=== PATIENT | male | born 1950 | race Caucasian/White ===

== ENCOUNTER 2017-08-08 16:49 | Inpatient (IN) ==
[2017-08-08] MEDS ORDERED: ALBUTEROL/IPRATROPIUM 3 ML NEB RESP TX STA (17:29)
[2017-08-08 17:38] LABS: Basophils % 0.4 % (0.0-0.8); Hematocrit 44.4 VOL% (42.0-52.0); Hemoglobin 15.5 GM/DL (14.0-18.0); Immature Granulocytes % 0.8 %; Immature Granulocytes Absolute 0.08 #; Lymphocytes # 0.2 10*3/uL (1.4-4.0); Lymphocytes % 1.9 % (21.2-54.2); Mean Corpuscular HGB Conc 34.9 GM/DL (32-36); Mean Corpuscular Hemoglobin 34 PG (27-34); Mean Platelet Volume 9.2 FL (9.6-12.0); Monocytes # 0.4 10*3/uL (0.11-0.8); Monocytes % 3.9 % (1.7-12.7); Platelet Count 127 T/CUMM (130-400); Red Blood Count 4.53 MC/CUMM (3.8-5.5); Red Cell Distribution Width 14.1 % (9.3-17.3); White Blood Count 9.7 T/CUMM (4-12)
[2017-08-08 17:51] LABS: Partial Thromboplastin Time 25.1 SECS (0-40)
[2017-08-08 17:57] LABS: Band Neutrophils 16 % (0-10); Lymphocytes 5 % (20-55); Myelocytes 1 %; Platelet Estimate Adequate; Segmented Neutrophils 76 % (50-85); Total Cells Counted 100
[2017-08-08 17:59] LABS: Alanine Aminotransferase 34 U/L (16-61); Albumin 3.4 G/DL (3.4-5.0); Alkaline Phosphatase 77 U/L (45-117); Aspartate Amino Transferase 63 U/L (0-37); Blood Urea Nitrogen 11 MG/DL (7-18); Calcium 8.3 MG/DL (8.5-10.1); Glucose 100 MG/DL (74-106); Lactic Acid 6.4 MMOL/L (0.4-2.0); Magnesium 0.8 MG/DL (1.8-2.4); Osmolality,Calculated 271.8 MOS/KG (273-304); Potassium 2.6 MMOL/L (3.5-5.1); Sodium 137 MMOL/L (136-145); Troponin I Only < 0.015 NG/ML (0.00-0.045)
[2017-08-08] MEDS ORDERED: THIAMINE INJ 100 MG, FOLIC ACID INJ 1 MG, MULTIVITAMIN INJ 10 ML in SODIUM CHLORIDE 0.9... IV ONE (18:18)
[2017-08-08] MEDS ORDERED: MAGNESIUM SULF RIDER 2 GM in PREMIX 1 EACH IV STA (19:04)
[2017-08-08] MEDS ORDERED: ONDANSETRON 4 MG/2 ML VIAL IV PRN (19:32)
[2017-08-08] MEDS ORDERED: MAGNESIUM SULF RIDER 50 ML IV ONE (20:19)
[2017-08-08] MEDS: DOCUSATE SODIUM 100 MG CAPSULE PO SCH (21:07)
[2017-08-08] MEDS: HYDROmorphone 2 MG/1 ML VIAL IV PRN (21:08)
[2017-08-08 21:10] LABS: Apearance,Urine Slightly Hazy (Clear); Blood, Urine Negative (Negative); Glucose,Urine (UA) 50 mg/dL (Negative); Hyaline Casts,Urine 53 /LPF (0-3); Ketones,Urine 20 mg/dL (Negative); Mucus,Urine Many /LPF (Occasional); Nitrite,Urine Negative (Negative); Protein,Urine 100 MG/DL; Squamous Epithelial Cell,Urine Occasional /HPF (0-10); Urine Specific Gravity 1.026 (1.001-1.035); WBC,Urine 1 /HPF (0-6)
[2017-08-08 21:11] LABS: Bilirubin,Urine Small mg/dL (Negative); Urine Color Dark yellow (Yellow)
[2017-08-09] MEDS: HYDROmorphone 2 MG/1 ML VIAL IV PRN ×3 (04:39→22:50)
[2017-08-09] MEDS: DOCUSATE SODIUM 100 MG CAPSULE PO SCH ×2 (09:16→22:50)
[2017-08-09] MEDS: PANTOPRAZOLE 40 MG TABLET PO SCH (09:16)
[2017-08-09] MEDS: SODIUM CHLORIDE 0.45% 1,000 ML IV SCH (14:33)
[2017-08-09 16:03] LABS: Folate 6.2 NG/ML (5.4-24.0)
[2017-08-09] MEDS: MEGESTROL 400 MG/10 ML UDCUP PO SCH (22:50)
[2017-08-09] MEDS: THIAMINE 100 MG TABLET PO SCH (22:51)
[2017-08-09] MEDS: POTASSIUM CHLORIDE 20 MEQ TABLET PO SCH (22:51)
[2017-08-10] MEDS ORDERED: ETOMIDATE 20 MG/10 ML VIAL IV ONE (01:11)
[2017-08-10] MEDS ORDERED: VECURONIUM 10 MG VIAL IV ONE (01:11)
[2017-08-10] MEDS ORDERED: PROPOFOL 1,000 MG/100 ML BOTTLE IV ONE (01:22)
[2017-08-10] MEDS ORDERED: LORazepam 2 MG/1 ML VIAL IV SCH (01:30)
[2017-08-10] MEDS ORDERED: DILTIAZEM 100 MG VIAL.ADD IV ONE (01:36)
[2017-08-10] MEDS ORDERED: SODIUM CHLORIDE 0.9% 100 ML IV ONE (01:37)
[2017-08-10 01:43] LABS: Allen Test Positive; Pt O2 Delivery Device Ventilator
[2017-08-10 01:44] LABS: ABG Base Excess -1.8 MMOL/L (-2.5-2.5); ABG HCO3 22.9 MMOL/L (20-26); ABG Oxygen Saturation 95.7 % (95-100); ABG PO2 98.3 MM HG (80-95); ABG TCO2 25.9 MMOL/L (23-27)
[2017-08-10 01:51] LABS: ABG PH 7.206 (7.35-7.45)
[2017-08-10] MEDS: DILTIAZEM INJ 100 MG in SODIUM CHLORIDE 0.9% 100 ML IV SCH ×2 (01:57→06:09)
[2017-08-10 02:12] LABS: Apearance,Urine CLOUDY (Clear); Bilirubin,Urine Small mg/dL (Negative); Blood, Urine Small mg/dL (Negative); Glucose,Urine (UA) 50 mg/dL (Negative); Hyaline Casts,Urine 6 /LPF (0-3); Ketones,Urine Negative (Negative); Mucus,Urine Few /LPF (Occasional); Nitrite,Urine Negative (Negative); Protein,Urine 100 MG/DL; RBC,Urine 3 /HPF (0-4); Squamous Epithelial Cell,Urine Occasional /HPF (0-10); Urine Color Amber (Yellow); Urine Specific Gravity 1.017 (1.001-1.035); WBC,Urine 5 /HPF (0-6)
[2017-08-10] MEDS: ALBUTEROL/IPRATROPIUM 3 ML NEB RESP TX SCH ×5 (02:41→20:40)
[2017-08-10] MEDS: PROPOFOL 1,000 MG/100 ML BOTTLE IV SCH ×4 (03:10→21:00)
[2017-08-10] MEDS: PIPERACILLIN/TAZOBACTAM 3,375 MG in SODIUM CHLORIDE 0.9% 100 ML IV SCH ×4 (03:11→17:44)
[2017-08-10 03:43] LABS: Albumin 2.6 G/DL (3.4-5.0); Bilirubin,Total 2.2 MG/DL (0.2-1.0); Calcium 8.2 MG/DL (8.5-10.1); Potassium 3.7 MMOL/L (3.5-5.1); Total Protein 5.9 G/DL (6.4-8.3)
[2017-08-10 03:46] LABS: Magnesium 1.5 MG/DL (1.8-2.4); Troponin I Only < 0.015 NG/ML (0.00-0.045)
[2017-08-10 03:50] LABS: Basophils % 0.4 % (0.0-0.8); Hematocrit 46.8 VOL% (42.0-52.0); Hemoglobin 15.3 GM/DL (14.0-18.0); Immature Granulocytes % 0.7 %; Immature Granulocytes Absolute 0.04 #; Lymphocytes # 0.4 10*3/uL (1.4-4.0); Lymphocytes % 6.9 % (21.2-54.2); Mean Corpuscular HGB Conc 32.7 GM/DL (32-36); Mean Corpuscular Hemoglobin 35 PG (27-34); Mean Corpuscular Volume 105.6 FL (87-102); Mean Platelet Volume 11.1 FL (9.6-12.0); Monocytes # 0.2 10*3/uL (0.11-0.8); Monocytes % 2.9 % (1.7-12.7); Neutrophils # 4.9 10*3/uL (1.4-7.4); Neutrophils % 89.1 % (38.7-73.9); Platelet Count 105 T/CUMM (130-400); Red Blood Count 4.43 MC/CUMM (3.8-5.5); Red Cell Distribution Width 13.9 % (9.3-17.3); White Blood Count 5.5 T/CUMM (4-12)
[2017-08-10 04:40] LABS: Band Neutrophils 4 % (0-10); Lymphocytes 9 % (20-55); Metamyelocytes 2 %; Myelocytes 2 %; Segmented Neutrophils 80 % (50-85); Total Cells Counted 100
[2017-08-10 04:41] LABS: Burr Cells Slight; Macrocytosis Slight; Platelet Estimate Decreased
[2017-08-10 04:44] LABS: Pt O2 Delivery Device Ventilator
[2017-08-10 04:48] LABS: ABG Base Excess 2.9 MMOL/L (-2.5-2.5); ABG HCO3 30.5 MMOL/L (20-26); ABG Oxygen Saturation 89.6 % (95-100); ABG PCO2 59.3 MM HG (35-48); ABG PH 7.329 (7.35-7.45); ABG PO2 64.6 MM HG (80-95); ABG TCO2 32.3 MMOL/L (23-27)
[2017-08-10] MEDS ORDERED: SODIUM CHLORIDE 0.9% 1,000 ML IV ONE (05:15)
[2017-08-10] MEDS: NOREPINEPHRINE 8 MG in SODIUM CHLORIDE 0.9% 242 ML IV SCH ×3 (05:41→21:12)
[2017-08-10] MEDS: LORazepam 2 MG/1 ML VIAL IV PRN (05:43)
[2017-08-10 06:29] LABS: Lactic Acid 4.4 MMOL/L (0.4-2.0)
[2017-08-10] MEDS: SODIUM CHLORIDE 0.45% 1,000 ML IV SCH (07:49)
[2017-08-10] MEDS: ALBUTEROL 2.5 MG/3 ML NEB RESP TX SCH (08:08)
[2017-08-10] MEDS: DEXTROSE 5% NACL 0.9% 1,000 ML IV SCH ×2 (08:34→17:01)
[2017-08-10] MEDS: methylPREDNISolone SOD SUC 40 MG/1 ML VIAL IV SCH ×3 (08:34→23:55)
[2017-08-10] MEDS: DOCUSATE SODIUM 100 MG CAPSULE PO SCH ×2 (10:35→21:15)
[2017-08-10] MEDS: POTASSIUM CHLORIDE 20 MEQ TABLET PO SCH ×2 (10:36→21:15)
[2017-08-10] MEDS: THIAMINE 100 MG TABLET PO SCH ×2 (10:36→21:15)
[2017-08-10] MEDS: PANTOPRAZOLE 40 MG VIAL IV SCH (10:36)
[2017-08-10] MEDS: MEGESTROL 400 MG/10 ML UDCUP PO SCH ×2 (10:37→21:16)
[2017-08-10] MEDS: PANTOPRAZOLE 40 MG TABLET PO SCH (10:38)
[2017-08-10] MEDS ORDERED: POTASSIUM CHLORIDE RIDER 20 MEQ in PREMIX 1 EACH IV PRN (12:09)
[2017-08-10] MEDS ORDERED: MAGNESIUM SULF RIDER 4 GM in PREMIX 1 EACH IV PRN (12:09)
[2017-08-10] MEDS ORDERED: DIGOXIN 0.5 MG/2 ML AMP IV ONE ×2 (12:12→12:30)
[2017-08-10] MEDS ORDERED: ENOXAPARIN 40 MG/0.4 ML SYRINGE SUBCUT SCH (12:30)
[2017-08-10] MEDS: ASPIRIN 325 MG TABLET PO SCH (13:37)
[2017-08-10] MEDS ORDERED: HEPARIN 5,000 UNIT/1 ML VIAL IV ONE (14:22)
[2017-08-10] MEDS: HEPARIN DRIP 25,000 UNITS/500 ML PREMIX IV SCH (15:25)
[2017-08-10] MEDS: MAGNESIUM SULF RIDER 2 GM in PREMIX 1 EACH IV PRN (15:31)
[2017-08-10] MEDS ORDERED: ZINC OXIDE PASTE 113 GM TUBE TOP PRN (15:43)
[2017-08-11] MEDS: ALBUTEROL/IPRATROPIUM 3 ML NEB RESP TX SCH ×6 (00:08→20:41)
[2017-08-11] MEDS: PIPERACILLIN/TAZOBACTAM 3,375 MG in SODIUM CHLORIDE 0.9% 100 ML IV SCH ×3 (01:46→18:08)
[2017-08-11] MEDS: PROPOFOL 1,000 MG/100 ML BOTTLE IV SCH ×4 (02:24→23:50)
[2017-08-11] MEDS: DEXTROSE 5% NACL 0.9% 1,000 ML IV SCH ×4 (02:55→23:10)
[2017-08-11] MEDS: NOREPINEPHRINE 8 MG in SODIUM CHLORIDE 0.9% 242 ML IV SCH ×3 (03:30→18:51)
[2017-08-11 04:24] LABS: ABG HCO3 28.6 MMOL/L (20-26); ABG PCO2 47.6 MM HG (35-48); ABG PH 7.397 (7.35-7.45); ABG PO2 158.8 MM HG (80-95); ABG TCO2 30.1 MMOL/L (23-27); Allen Test Positive; Pt O2 Delivery Device Ventilator
[2017-08-11] MEDS: ACETAMINOPHEN 325 MG TABLET PO PRN (04:41)
[2017-08-11] MEDS: POTASSIUM CHLORIDE RIDER 10 MEQ in PREMIX 1 EACH IV PRN ×2 (05:10→06:08)
[2017-08-11 06:00] LABS: ABG PCO2 73.9 MM HG (35-48)
[2017-08-11 07:53] LABS: Basophils % 0.1 % (0.0-0.8); Hematocrit 36.9 VOL% (42.0-52.0); Immature Granulocytes % 0.7 %; Immature Granulocytes Absolute 0.05 #; Lymphocytes # 0.1 10*3/uL (1.4-4.0); Lymphocytes % 1.7 % (21.2-54.2); Mean Corpuscular HGB Conc 34.1 GM/DL (32-36); Mean Corpuscular Hemoglobin 34 PG (27-34); Mean Corpuscular Volume 100.8 FL (87-102); Mean Platelet Volume 11.5 FL (9.6-12.0); Monocytes # 0.4 10*3/uL (0.11-0.8); Monocytes % 5.8 % (1.7-12.7); Neutrophils % 91.7 % (38.7-73.9); Platelet Count 102 T/CUMM (130-400); Red Blood Count 3.66 MC/CUMM (3.8-5.5)
[2017-08-11 08:01] LABS: Hemoglobin 12.6 GM/DL (14.0-18.0); White Blood Count 7.6 T/CUMM (4-12)
[2017-08-11 08:31] LABS: Band Neutrophils 10 % (0-10); Lymphocytes 4 % (20-55); Metamyelocytes 4 %; Segmented Neutrophils 76 % (50-85); Total Cells Counted 100
[2017-08-11 08:32] LABS: Macrocytosis Slight; Platelet Estimate Decreased
[2017-08-11] MEDS: DIGOXIN 0.5 MG/2 ML AMP IV SCH (09:06)
[2017-08-11] MEDS: PANTOPRAZOLE 40 MG VIAL IV SCH (09:07)
[2017-08-11] MEDS: THIAMINE 100 MG TABLET PO SCH ×2 (09:07→21:39)
[2017-08-11] MEDS: MEGESTROL 400 MG/10 ML UDCUP PO SCH ×2 (09:07→21:39)
[2017-08-11] MEDS: DOCUSATE SODIUM 100 MG CAPSULE PO SCH ×2 (09:07→21:39)
[2017-08-11] MEDS: POTASSIUM CHLORIDE 20 MEQ TABLET PO SCH ×2 (09:07→21:39)
[2017-08-11] MEDS: ASPIRIN 325 MG TABLET PO SCH (09:07)
[2017-08-11] MEDS: methylPREDNISolone SOD SUC 40 MG/1 ML VIAL IV SCH ×3 (09:45→23:53)
[2017-08-11 14:13] LABS: Calcium 7.9 MG/DL (8.5-10.1); Magnesium 1.9 MG/DL (1.8-2.4); Potassium 2.9 MMOL/L (3.5-5.1)
[2017-08-11] MEDS: HEPARIN DRIP 25,000 UNITS/500 ML PREMIX IV SCH ×2 (15:42→20:24)
[2017-08-11] MEDS ORDERED: POTASSIUM CHLORIDE INJ 50 MEQ in SODIUM CHLORIDE 0.9% 500 ML IV ONE (20:00)
[2017-08-12] MEDS: ALBUTEROL/IPRATROPIUM 3 ML NEB RESP TX SCH ×6 (00:28→20:08)
[2017-08-12] MEDS: PIPERACILLIN/TAZOBACTAM 3,375 MG in SODIUM CHLORIDE 0.9% 100 ML IV SCH ×3 (02:43→17:33)
[2017-08-12 05:13] LABS: Allen Test Positive; Pt O2 Delivery Device Ventilator
[2017-08-12 05:26] LABS: ABG PCO2 50.8 MM HG (35-48); ABG PH 7.398 (7.35-7.45); ABG PO2 159.8 MM HG (80-95)
[2017-08-12 05:27] LABS: ABG Base Excess 4.8 MMOL/L (-2.5-2.5); ABG HCO3 30.6 MMOL/L (20-26); ABG Oxygen Saturation 98.8 % (95-100); ABG TCO2 32.2 MMOL/L (23-27)
[2017-08-12] MEDS: PROPOFOL 1,000 MG/100 ML BOTTLE IV SCH ×2 (05:27→05:46)
[2017-08-12 06:27] LABS: Basophils % 0.1 % (0.0-0.8); Hematocrit 33.9 VOL% (42.0-52.0); Hemoglobin 11.4 GM/DL (14.0-18.0); Immature Granulocytes % 0.8 %; Immature Granulocytes Absolute 0.08 #; Lymphocytes # 0.2 10*3/uL (1.4-4.0); Lymphocytes % 1.9 % (21.2-54.2); Mean Corpuscular HGB Conc 33.6 GM/DL (32-36); Mean Corpuscular Hemoglobin 34 PG (27-34); Mean Corpuscular Volume 101.2 FL (87-102); Mean Platelet Volume 11.4 FL (9.6-12.0); Monocytes # 0.7 10*3/uL (0.11-0.8); Monocytes % 6.4 % (1.7-12.7); NRBC # 0.03 10*3/uL; Neutrophils # 9.7 10*3/uL (1.4-7.4); Neutrophils % 90.8 % (38.7-73.9); Red Blood Count 3.35 MC/CUMM (3.8-5.5); White Blood Count 10.6 T/CUMM (4-12)
[2017-08-12 06:34] LABS: Platelet Count 90 T/CUMM (130-400)
[2017-08-12 06:38] LABS: PT Patient Result 10.2 SECS
[2017-08-12] MEDS: NOREPINEPHRINE 8 MG in SODIUM CHLORIDE 0.9% 242 ML IV SCH (06:50)
[2017-08-12 06:53] LABS: Band Neutrophils 2 % (0-10); Burr Cells Slight; Lymphocytes 3 % (20-55); Macrocytosis Slight; Segmented Neutrophils 90 % (50-85); Total Cells Counted 100
[2017-08-12 06:54] LABS: Calcium 7.9 MG/DL (8.5-10.1); Magnesium 1.7 MG/DL (1.8-2.4); Osmolality,Calculated 293.7 MOS/KG (273-304); Platelet Estimate Decreased; Potassium 3.3 MMOL/L (3.5-5.1)
[2017-08-12 06:58] LABS: Partial Thromboplastin Time 56.3 SECS (0-40)
[2017-08-12 06:59] LABS: Calcium 7.8 MG/DL (8.5-10.1); Osmolality,Calculated 293.7 MOS/KG (273-304); Potassium 3.3 MMOL/L (3.5-5.1)
[2017-08-12] MEDS ORDERED: POTASSIUM CHLORIDE INJ 40 MEQ in SODIUM CHLORIDE 0.9% 500 ML IV ONE (08:00)
[2017-08-12 09:22] LABS: 25 Hydroxy Vitamin D Total 18.6 NG/ML; Folate 3.4 NG/ML (5.4-24.0); Prostate Specific Antigen Diag 0.8 NG/ML (0-4); Vitamin B12 > 2000 PG/ML (211-911)
[2017-08-12] MEDS: DEXTROSE 5% NACL 0.9% 1,000 ML IV SCH ×2 (09:25→19:26)
[2017-08-12] MEDS: DIGOXIN 0.5 MG/2 ML AMP IV SCH (09:48)
[2017-08-12] MEDS: MAGNESIUM SULF RIDER 2 GM in PREMIX 1 EACH IV PRN (09:48)
[2017-08-12] MEDS: MEGESTROL 400 MG/10 ML UDCUP PO SCH ×2 (09:48→20:56)
[2017-08-12] MEDS: PANTOPRAZOLE 40 MG VIAL IV SCH (09:49)
[2017-08-12] MEDS: POTASSIUM CHLORIDE 20 MEQ TABLET PO SCH ×2 (09:49→20:56)
[2017-08-12] MEDS: methylPREDNISolone SOD SUC 40 MG/1 ML VIAL IV SCH ×2 (09:49→17:00)
[2017-08-12] MEDS: ASPIRIN 325 MG TABLET PO SCH (09:57)
[2017-08-12] MEDS: THIAMINE 100 MG TABLET PO SCH ×2 (10:01→20:56)
[2017-08-12] MEDS: DOCUSATE SODIUM 100 MG CAPSULE PO SCH (10:48)
[2017-08-12] MEDS: HEPARIN DRIP 25,000 UNITS/500 ML PREMIX IV SCH (13:34)
[2017-08-12] MEDS: DOCUSATE SODIUM 100 MG/10 ML UDCUP PO SCH (20:56)
[2017-08-13] MEDS: ALBUTEROL/IPRATROPIUM 3 ML NEB RESP TX SCH ×7 (00:06→23:17)
[2017-08-13] MEDS: HEPARIN DRIP 25,000 UNITS/500 ML PREMIX IV SCH (00:43)
[2017-08-13] MEDS: PIPERACILLIN/TAZOBACTAM 3,375 MG in SODIUM CHLORIDE 0.9% 100 ML IV SCH ×3 (01:50→17:48)
[2017-08-13 03:52] LABS: ABG Base Excess 5.3 MMOL/L (-2.5-2.5); ABG HCO3 29.2 MMOL/L (20-26); ABG Oxygen Saturation 99.1 % (95-100); ABG PCO2 44.1 MM HG (35-48); ABG PH 7.442 (7.35-7.45); ABG TCO2 27.1 MMOL/L (23-27)
[2017-08-13] MEDS: PROPOFOL 1,000 MG/100 ML BOTTLE IV SCH ×4 (04:22→22:57)
[2017-08-13] MEDS: DEXTROSE 5% NACL 0.9% 1,000 ML IV SCH ×2 (05:25→23:00)
[2017-08-13 06:04] LABS: Basophils # 0.1 10*3/uL (0.0-0.2); Basophils % 0.6 % (0.0-0.8); Hematocrit 29.6 VOL% (42.0-52.0); Immature Granulocytes % 1.1 %; Immature Granulocytes Absolute 0.09 #; Lymphocytes # 0.3 10*3/uL (1.4-4.0); Mean Corpuscular HGB Conc 33.8 GM/DL (32-36); Mean Corpuscular Hemoglobin 34 PG (27-34); Mean Corpuscular Volume 100.7 FL (87-102); Monocytes # 0.4 10*3/uL (0.11-0.8); Monocytes % 4.9 % (1.7-12.7); NRBC # 0.04 10*3/uL; Neutrophils # 7.5 10*3/uL (1.4-7.4); Neutrophils % 90.4 % (38.7-73.9); Red Blood Count 2.94 MC/CUMM (3.8-5.5); Red Cell Distribution Width 14.5 % (9.3-17.3); White Blood Count 8.3 T/CUMM (4-12)
[2017-08-13 06:16] LABS: Platelet Count 71 T/CUMM (130-400)
[2017-08-13 06:23] LABS: PT Patient Result 10.3 SECS
[2017-08-13 06:29] LABS: Partial Thromboplastin Time 49.8 SECS (0-40)
[2017-08-13 06:37] LABS: Magnesium 1.9 MG/DL (1.8-2.4); Osmolality,Calculated 300.3 MOS/KG (273-304); Potassium 3.5 MMOL/L (3.5-5.1)
[2017-08-13] MEDS ORDERED: FUROSEMIDE 20 MG/2 ML VIAL IV ONE (07:07)
[2017-08-13 07:17] LABS: Band Neutrophils 3 % (0-10); Lymphocytes 12 % (20-55); Macrocytosis 2+; Platelet Estimate Decreased; Segmented Neutrophils 79 % (50-85); Total Cells Counted 100
[2017-08-13] MEDS: NOREPINEPHRINE 8 MG in SODIUM CHLORIDE 0.9% 242 ML IV SCH (07:39)
[2017-08-13] MEDS ORDERED: POTASSIUM CHLORIDE INJ 30 MEQ in SODIUM CHLORIDE 0.9% 500 ML IV SCH (08:30)
[2017-08-13] MEDS: PANTOPRAZOLE 40 MG VIAL IV SCH (08:35)
[2017-08-13] MEDS: POTASSIUM CHLORIDE 20 MEQ PACK NG SCH ×2 (08:36→21:49)
[2017-08-13] MEDS: THIAMINE 100 MG TABLET PO SCH ×2 (08:36→21:50)
[2017-08-13] MEDS: DOCUSATE SODIUM 100 MG/10 ML UDCUP PO SCH ×2 (08:36→21:50)
[2017-08-13] MEDS: MEGESTROL 400 MG/10 ML UDCUP PO SCH ×2 (08:36→21:49)
[2017-08-13] MEDS: ASPIRIN 325 MG TABLET PO SCH (08:36)
[2017-08-13] MEDS: DIGOXIN 0.5 MG/2 ML AMP IV SCH (08:38)
[2017-08-13] MEDS: methylPREDNISolone SOD SUC 40 MG/1 ML VIAL IV SCH ×3 (08:38→16:16)
[2017-08-13] MEDS: ENOXAPARIN 80 MG/0.8 ML SYRINGE SUBCUT SCH ×2 (10:11→21:50)
[2017-08-13] MEDS ORDERED: DEXTROSE 50% 25 GM/50 ML VIAL IV PRN (12:44)
[2017-08-13] MEDS ORDERED: GLUCAGON 1 MG VIAL IM PRN (12:44)
[2017-08-13] MEDS ORDERED: POTASSIUM CHLORIDE 20 MEQ/15 ML UDCUP PER TUBE ONE (14:17)
[2017-08-13 15:28] LABS: Apearance,Urine CLEAR (Clear); Bacteria,Urine Occasional /HPF (Few); Bilirubin,Urine Negative (Negative); Blood, Urine Negative (Negative); Glucose,Urine (UA) Negative (Negative); Ketones,Urine Negative (Negative); Mucus,Urine Occasional /LPF (Occasional); Nitrite,Urine Negative (Negative); Protein,Urine Negative; RBC,Urine 5 /HPF (0-4); Urine Color Yellow (Yellow); Urine Specific Gravity 1.023 (1.001-1.035); WBC,Urine 1 /HPF (0-6)
[2017-08-13] MEDS: INSULIN REGULAR 100 UNIT/ML SUBCUT SCH ×2 (17:48→23:33)
[2017-08-14] MEDS: methylPREDNISolone SOD SUC 40 MG/1 ML VIAL IV SCH ×3 (01:36→15:20)
[2017-08-14 02:23] LABS: Basophils # 0.1 10*3/uL (0.0-0.2); Basophils % 0.6 % (0.0-0.8); Hematocrit 31.5 VOL% (42.0-52.0); Hemoglobin 10.8 GM/DL (14.0-18.0); Immature Granulocytes Absolute 0.11 #; Lymphocytes # 0.3 10*3/uL (1.4-4.0); Lymphocytes % 3.1 % (21.2-54.2); Mean Corpuscular HGB Conc 34.3 GM/DL (32-36); Mean Corpuscular Hemoglobin 34 PG (27-34); Mean Corpuscular Volume 100.3 FL (87-102); Mean Platelet Volume 12.4 FL (9.6-12.0); Monocytes # 0.5 10*3/uL (0.11-0.8); Monocytes % 4.9 % (1.7-12.7); NRBC # 0.03 10*3/uL; Neutrophils # 9.7 10*3/uL (1.4-7.4); Neutrophils % 90.4 % (38.7-73.9); Platelet Count 82 T/CUMM (130-400); Red Blood Count 3.14 MC/CUMM (3.8-5.5); White Blood Count 10.7 T/CUMM (4-12)
[2017-08-14 03:10] LABS: Calcium 7.9 MG/DL (8.5-10.1); Magnesium 1.8 MG/DL (1.8-2.4); Osmolality,Calculated 296.4 MOS/KG (273-304); Potassium 3.9 MMOL/L (3.5-5.1)
[2017-08-14 03:15] LABS: Prealbumin 9.2 MG/DL (20-40)
[2017-08-14] MEDS: PIPERACILLIN/TAZOBACTAM 3,375 MG in SODIUM CHLORIDE 0.9% 100 ML IV SCH ×3 (03:19→18:36)
[2017-08-14] MEDS: ALBUTEROL/IPRATROPIUM 3 ML NEB RESP TX SCH ×6 (03:21→23:22)
[2017-08-14] MEDS: NOREPINEPHRINE 8 MG in SODIUM CHLORIDE 0.9% 242 ML IV SCH (04:36)
[2017-08-14 05:21] LABS: ABG Base Excess 6.6 MMOL/L (-2.5-2.5); ABG HCO3 30.4 MMOL/L (20-26); ABG Oxygen Saturation 98.4 % (95-100); ABG PCO2 45.7 MM HG (35-48); ABG PH 7.451 (7.35-7.45); ABG TCO2 26.2 MMOL/L (23-27); Allen Test Positive; Pt O2 Delivery Device Ventilator
[2017-08-14 05:46] LABS: Band Neutrophils 1 % (0-10); Giant Platelets Few; Hypochromasia 1+; Lymphocytes 2 % (20-55); Nucleated Red Blood Cells 1 (0-5); Ovalocytes Slight; Platelet Estimate Decreased; Segmented Neutrophils 93 % (50-85); Total Cells Counted 100
[2017-08-14 05:47] LABS: Macrocytosis Slight
[2017-08-14] MEDS: INSULIN REGULAR 100 UNIT/ML SUBCUT SCH ×3 (06:24→17:54)
[2017-08-14] MEDS: PROPOFOL 1,000 MG/100 ML BOTTLE IV SCH ×3 (07:55→19:28)
[2017-08-14] MEDS: METOCLOPRAMIDE 10 MG/10 ML UDCUP PO SCH ×3 (08:59→22:31)
[2017-08-14] MEDS: MEGESTROL 400 MG/10 ML UDCUP PO SCH ×2 (09:00→22:30)
[2017-08-14] MEDS: DIGOXIN 0.5 MG/2 ML AMP IV SCH (09:00)
[2017-08-14] MEDS: DOCUSATE SODIUM 100 MG/10 ML UDCUP PO SCH ×2 (09:00→22:29)
[2017-08-14] MEDS: PANTOPRAZOLE 40 MG VIAL IV SCH (09:00)
[2017-08-14] MEDS: POTASSIUM CHLORIDE 20 MEQ PACK NG SCH ×2 (09:00→22:31)
[2017-08-14] MEDS ORDERED: METOCLOPRAMIDE 10 MG/2 ML VIAL IV SCH (09:00)
[2017-08-14] MEDS: chlordiazePOXIDE 25 MG CAPSULE PO PRN (09:01)
[2017-08-14] MEDS: THIAMINE 100 MG TABLET PO SCH ×2 (09:01→22:30)
[2017-08-14] MEDS: ENOXAPARIN 80 MG/0.8 ML SYRINGE SUBCUT SCH ×2 (09:01→22:39)
[2017-08-14] MEDS: DEXTROSE 5% NACL 0.9% 1,000 ML IV SCH (11:31)
[2017-08-15] MEDS: INSULIN REGULAR 100 UNIT/ML SUBCUT SCH ×4 (00:47→17:59)
[2017-08-15] MEDS: methylPREDNISolone SOD SUC 40 MG/1 ML VIAL IV SCH ×3 (00:47→15:19)
[2017-08-15] MEDS: PROPOFOL 1,000 MG/100 ML BOTTLE IV SCH ×3 (02:26→15:22)
[2017-08-15] MEDS: ALBUTEROL/IPRATROPIUM 3 ML NEB RESP TX SCH ×6 (02:54→23:48)
[2017-08-15] MEDS: PIPERACILLIN/TAZOBACTAM 3,375 MG in SODIUM CHLORIDE 0.9% 100 ML IV SCH ×3 (03:10→17:59)
[2017-08-15] MEDS: METOCLOPRAMIDE 10 MG/10 ML UDCUP PO SCH ×4 (03:34→22:11)
[2017-08-15 04:27] LABS: ABG Base Excess 6.7 MMOL/L (-2.5-2.5); ABG HCO3 30.5 MMOL/L (20-26); ABG Oxygen Saturation 97.4 % (95-100); ABG PCO2 45.6 MM HG (35-48); ABG PH 7.451 (7.35-7.45); ABG PO2 92.6 MM HG (80-95); ABG TCO2 27.5 MMOL/L (23-27); Pt O2 Delivery Device Ventilator
[2017-08-15] MEDS: NOREPINEPHRINE 8 MG in SODIUM CHLORIDE 0.9% 242 ML IV SCH (04:44)
[2017-08-15 05:20] LABS: Basophils % 0.4 % (0.0-0.8); Hematocrit 35.8 VOL% (42.0-52.0); Hemoglobin 11.6 GM/DL (14.0-18.0); Immature Granulocytes % 1.3 %; Immature Granulocytes Absolute 0.15 #; Lymphocytes # 0.4 10*3/uL (1.4-4.0); Lymphocytes % 3.9 % (21.2-54.2); Mean Corpuscular HGB Conc 32.4 GM/DL (32-36); Mean Corpuscular Hemoglobin 33 PG (27-34); Mean Corpuscular Volume 103.2 FL (87-102); Mean Platelet Volume 12.5 FL (9.6-12.0); Monocytes # 0.3 10*3/uL (0.11-0.8); Monocytes % 2.4 % (1.7-12.7); NRBC # 0.02 10*3/uL; Neutrophils # 10.3 10*3/uL (1.4-7.4); Platelet Count 105 T/CUMM (130-400); Red Blood Count 3.47 MC/CUMM (3.8-5.5); Red Cell Distribution Width 15.2 % (9.3-17.3); White Blood Count 11.1 T/CUMM (4-12)
[2017-08-15 05:47] LABS: Calcium 8.4 MG/DL (8.5-10.1); Magnesium 1.8 MG/DL (1.8-2.4); Osmolality,Calculated 293.7 MOS/KG (273-304); Potassium 4.2 MMOL/L (3.5-5.1)
[2017-08-15] MEDS: BUDESONIDE 0.25 MG/2 ML NEB RESP TX SCH ×2 (06:50→19:27)
[2017-08-15 06:51] LABS: Giant Platelets Few; Hypochromasia 1+; Lymphocytes 4 % (20-55); Ovalocytes Slight; Platelet Estimate Decreased; Segmented Neutrophils 92 % (50-85); Total Cells Counted 100
[2017-08-15 06:52] LABS: Macrocytosis Slight
[2017-08-15] MEDS: DOCUSATE SODIUM 100 MG/10 ML UDCUP PO SCH ×2 (09:05→22:11)
[2017-08-15] MEDS: THIAMINE 100 MG TABLET PO SCH ×2 (09:05→22:17)
[2017-08-15] MEDS: MEGESTROL 400 MG/10 ML UDCUP PO SCH ×2 (09:05→22:11)
[2017-08-15] MEDS: PANTOPRAZOLE 40 MG VIAL IV SCH (09:06)
[2017-08-15] MEDS: DIGOXIN 0.5 MG/2 ML AMP IV SCH (09:06)
[2017-08-15] MEDS: ENOXAPARIN 80 MG/0.8 ML SYRINGE SUBCUT SCH ×2 (09:06→22:12)
[2017-08-15] MEDS: chlordiazePOXIDE 25 MG CAPSULE PO PRN (09:06)
[2017-08-15] MEDS: POTASSIUM CHLORIDE 20 MEQ PACK NG SCH ×2 (09:07→22:11)
[2017-08-15] MEDS: POTASSIUM PHOS/SOD PHOS POWDER 250 MG PACK PO SCH ×3 (09:08→22:22)
[2017-08-15] MEDS: DEXTROSE 5% NACL 0.9% 1,000 ML IV SCH (15:20)
[2017-08-16] MEDS: methylPREDNISolone SOD SUC 40 MG/1 ML VIAL IV SCH ×3 (01:51→17:04)
[2017-08-16] MEDS: INSULIN REGULAR 100 UNIT/ML SUBCUT SCH ×5 (01:51→23:51)
[2017-08-16] MEDS: PIPERACILLIN/TAZOBACTAM 3,375 MG in SODIUM CHLORIDE 0.9% 100 ML IV SCH ×3 (02:55→17:57)
[2017-08-16] MEDS: ALBUTEROL/IPRATROPIUM 3 ML NEB RESP TX SCH ×5 (03:07→20:06)
[2017-08-16] MEDS: METOCLOPRAMIDE 10 MG/10 ML UDCUP PO SCH ×4 (04:05→21:41)
[2017-08-16 04:25] LABS: ABG Base Excess 7.5 MMOL/L (-2.5-2.5); ABG HCO3 31.3 MMOL/L (20-26); ABG Oxygen Saturation 98.8 % (95-100); ABG PCO2 44.2 MM HG (35-48); ABG PH 7.473 (7.35-7.45); ABG TCO2 25.5 MMOL/L (23-27); Allen Test Positive; Pt O2 Delivery Device Ventilator
[2017-08-16 05:10] LABS: Basophils % 0.3 % (0.0-0.8); Eosinophils % 0.1 % (0.00-10.9); Hematocrit 32.6 VOL% (42.0-52.0); Hemoglobin 11.2 GM/DL (14.0-18.0); Immature Granulocytes % 1.3 %; Immature Granulocytes Absolute 0.15 #; Lymphocytes # 0.4 10*3/uL (1.4-4.0); Lymphocytes % 3.3 % (21.2-54.2); Mean Corpuscular HGB Conc 34.4 GM/DL (32-36); Mean Corpuscular Hemoglobin 34 PG (27-34); Mean Platelet Volume 12.3 FL (9.6-12.0); Monocytes # 0.3 10*3/uL (0.11-0.8); Monocytes % 2.4 % (1.7-12.7); Neutrophils # 10.8 10*3/uL (1.4-7.4); Neutrophils % 92.6 % (38.7-73.9); Platelet Count 133 T/CUMM (130-400); Red Blood Count 3.26 MC/CUMM (3.8-5.5); White Blood Count 11.7 T/CUMM (4-12)
[2017-08-16] MEDS: NOREPINEPHRINE 8 MG in SODIUM CHLORIDE 0.9% 242 ML IV SCH (05:32)
[2017-08-16 05:38] LABS: Albumin 1.9 G/DL (3.4-5.0); Bilirubin,Direct 0.47 MG/DL (0.0-0.20); Bilirubin,Indirect 0.5 MG/DL (0.0-1.0); Total Protein 5.2 G/DL (6.4-8.3)
[2017-08-16 05:42] LABS: Osmolality,Calculated 289.8 MOS/KG (273-304); Potassium 4.1 MMOL/L (3.5-5.1); Prealbumin 16.3 MG/DL (20-40)
[2017-08-16 05:54] LABS: Band Neutrophils 1 % (0-10); Eosinophils 1 % (0-10); Hypochromasia 1+; Lymphocytes 3 % (20-55); Segmented Neutrophils 94 % (50-85); Total Cells Counted 100
[2017-08-16 05:55] LABS: Macrocytosis Slight; Platelet Estimate Adequate
[2017-08-16 05:56] LABS: Calcium 7.9 MG/DL (8.5-10.1); Magnesium 1.8 MG/DL (1.8-2.4); Osmolality,Calculated 287.1 MOS/KG (273-304); Potassium 4.1 MMOL/L (3.5-5.1)
[2017-08-16] MEDS: PROPOFOL 1,000 MG/100 ML BOTTLE IV SCH ×3 (07:07→20:45)
[2017-08-16] MEDS: BUDESONIDE 0.25 MG/2 ML NEB RESP TX SCH ×2 (08:06→20:06)
[2017-08-16] MEDS: THIAMINE 100 MG TABLET PO SCH ×2 (08:33→21:41)
[2017-08-16] MEDS: MEGESTROL 400 MG/10 ML UDCUP PO SCH ×2 (08:33→21:41)
[2017-08-16] MEDS: DOCUSATE SODIUM 100 MG/10 ML UDCUP PO SCH ×2 (08:33→21:41)
[2017-08-16] MEDS: PANTOPRAZOLE 40 MG VIAL IV SCH (08:34)
[2017-08-16] MEDS: DIGOXIN 0.5 MG/2 ML AMP IV SCH (08:34)
[2017-08-16] MEDS: POTASSIUM PHOS/SOD PHOS POWDER 250 MG PACK PO SCH ×3 (08:34→21:42)
[2017-08-16] MEDS ORDERED: FUROSEMIDE 40 MG/4 ML VIAL IV ONE (08:46)
[2017-08-16] MEDS: POTASSIUM CHLORIDE 20 MEQ PACK NG SCH ×2 (08:47→21:42)
[2017-08-16] MEDS: ENOXAPARIN 80 MG/0.8 ML SYRINGE SUBCUT SCH ×2 (09:00→21:42)
[2017-08-16] MEDS: DEXTROSE 5% NACL 0.9% 1,000 ML IV SCH (16:49)
[2017-08-17] MEDS: methylPREDNISolone SOD SUC 40 MG/1 ML VIAL IV SCH ×3 (00:35→16:43)
[2017-08-17] MEDS: ALBUTEROL/IPRATROPIUM 3 ML NEB RESP TX SCH ×7 (00:56→23:07)
[2017-08-17] MEDS: PIPERACILLIN/TAZOBACTAM 3,375 MG in SODIUM CHLORIDE 0.9% 100 ML IV SCH ×3 (02:43→17:07)
[2017-08-17 03:41] LABS: ABG Base Excess 8.4 MMOL/L (-2.5-2.5); ABG HCO3 32.2 MMOL/L (20-26); ABG Oxygen Saturation 99.1 % (95-100); ABG PCO2 48.2 MM HG (35-48); ABG PH 7.452 (7.35-7.45); Allen Test Positive; Pt O2 Delivery Device Ventilator
[2017-08-17] MEDS: PROPOFOL 1,000 MG/100 ML BOTTLE IV SCH ×4 (04:12→23:15)
[2017-08-17] MEDS: METOCLOPRAMIDE 10 MG/10 ML UDCUP PO SCH ×4 (04:12→22:06)
[2017-08-17] MEDS: NOREPINEPHRINE 8 MG in SODIUM CHLORIDE 0.9% 242 ML IV SCH (05:21)
[2017-08-17] MEDS: INSULIN REGULAR 100 UNIT/ML SUBCUT SCH ×3 (06:44→19:33)
[2017-08-17] MEDS: BUDESONIDE 0.25 MG/2 ML NEB RESP TX SCH ×2 (07:17→19:54)
[2017-08-17] MEDS: ENOXAPARIN 80 MG/0.8 ML SYRINGE SUBCUT SCH ×2 (09:09→22:07)
[2017-08-17] MEDS: THIAMINE 100 MG TABLET PO SCH ×2 (09:11→22:08)
[2017-08-17] MEDS: POTASSIUM CHLORIDE 20 MEQ PACK NG SCH ×2 (09:11→22:08)
[2017-08-17] MEDS: MEGESTROL 400 MG/10 ML UDCUP PO SCH ×2 (09:12→22:06)
[2017-08-17] MEDS: DOCUSATE SODIUM 100 MG/10 ML UDCUP PO SCH ×2 (09:12→22:07)
[2017-08-17] MEDS: PANTOPRAZOLE 40 MG VIAL IV SCH (09:12)
[2017-08-17] MEDS: POTASSIUM PHOS/SOD PHOS POWDER 250 MG PACK PO SCH ×3 (09:13→22:08)
[2017-08-17] MEDS: DIGOXIN 0.5 MG/2 ML AMP IV SCH (09:29)
[2017-08-17] MEDS: DEXTROSE 5% NACL 0.9% 1,000 ML IV SCH ×2 (09:37→16:44)
[2017-08-17] MEDS ORDERED: BISACODYL 10 MG SUPP RECTAL PRN (17:30)
[2017-08-18] MEDS: methylPREDNISolone SOD SUC 40 MG/1 ML VIAL IV SCH ×3 (01:17→16:32)
[2017-08-18] MEDS: INSULIN REGULAR 100 UNIT/ML SUBCUT SCH ×4 (01:50→18:17)
[2017-08-18] MEDS: PIPERACILLIN/TAZOBACTAM 3,375 MG in SODIUM CHLORIDE 0.9% 100 ML IV SCH ×3 (02:48→18:05)
[2017-08-18] MEDS: ALBUTEROL/IPRATROPIUM 3 ML NEB RESP TX SCH ×6 (02:57→23:10)
[2017-08-18 03:02] LABS: ABG Base Excess 7.1 MMOL/L (-2.5-2.5); ABG HCO3 30.9 MMOL/L (20-26); ABG PCO2 41.3 MM HG (35-48); ABG PH 7.486 (7.35-7.45); ABG PO2 85.1 MM HG (80-95); ABG TCO2 27.8 MMOL/L (23-27); Allen Test Positive; Pt O2 Delivery Device Ventilator
[2017-08-18] MEDS: METOCLOPRAMIDE 10 MG/10 ML UDCUP PO SCH ×4 (03:10→21:17)
[2017-08-18] MEDS: PROPOFOL 1,000 MG/100 ML BOTTLE IV SCH ×3 (05:26→20:01)
[2017-08-18] MEDS: NOREPINEPHRINE 8 MG in SODIUM CHLORIDE 0.9% 242 ML IV SCH (05:55)
[2017-08-18] MEDS: BUDESONIDE 0.25 MG/2 ML NEB RESP TX SCH ×2 (08:32→19:38)
[2017-08-18] MEDS: DIGOXIN 0.5 MG/2 ML AMP IV SCH (08:54)
[2017-08-18] MEDS: PANTOPRAZOLE 40 MG VIAL IV SCH (08:55)
[2017-08-18] MEDS: DOCUSATE SODIUM 100 MG/10 ML UDCUP PO SCH ×2 (08:55→21:17)
[2017-08-18] MEDS: THIAMINE 100 MG TABLET PO SCH ×2 (08:55→21:17)
[2017-08-18] MEDS: POTASSIUM CHLORIDE 20 MEQ PACK NG SCH ×2 (08:55→21:17)
[2017-08-18] MEDS: MEGESTROL 400 MG/10 ML UDCUP PO SCH ×2 (08:55→21:17)
[2017-08-18] MEDS: POTASSIUM PHOS/SOD PHOS POWDER 250 MG PACK PO SCH ×3 (08:56→21:18)
[2017-08-18] MEDS: ENOXAPARIN 80 MG/0.8 ML SYRINGE SUBCUT SCH ×2 (09:04→21:18)
[2017-08-18] MEDS: ACETAMINOPHEN 325 MG TABLET PO PRN (14:12)
[2017-08-18] MEDS ORDERED: SKIN HEALING OINT (AQUAPHOR) 50 GM TUBE TOP PRN (15:26)
[2017-08-18 15:39] LABS: Calcium 7.7 MG/DL (8.5-10.1); Osmolality,Calculated 285.4 MOS/KG (273-304); Potassium 4.4 MMOL/L (3.5-5.1)
[2017-08-18] MEDS: DEXTROSE 5% NACL 0.9% 1,000 ML IV SCH (20:01)
[2017-08-19] MEDS: INSULIN REGULAR 100 UNIT/ML SUBCUT SCH ×4 (00:54→17:54)
[2017-08-19] MEDS: methylPREDNISolone SOD SUC 40 MG/1 ML VIAL IV SCH ×3 (00:55→15:11)
[2017-08-19] MEDS: ALBUTEROL/IPRATROPIUM 3 ML NEB RESP TX SCH ×5 (03:09→19:23)
[2017-08-19] MEDS: PROPOFOL 1,000 MG/100 ML BOTTLE IV SCH ×3 (03:59→21:54)
[2017-08-19] MEDS: PIPERACILLIN/TAZOBACTAM 3,375 MG in SODIUM CHLORIDE 0.9% 100 ML IV SCH ×3 (04:03→17:35)
[2017-08-19] MEDS: METOCLOPRAMIDE 10 MG/10 ML UDCUP PO SCH ×4 (04:03→20:58)
[2017-08-19] MEDS: NOREPINEPHRINE 8 MG in SODIUM CHLORIDE 0.9% 242 ML IV SCH (04:29)
[2017-08-19 05:12] LABS: ABG Base Excess 7.6 MMOL/L (-2.5-2.5); ABG HCO3 31.4 MMOL/L (20-26); ABG Oxygen Saturation 99.3 % (95-100); ABG PCO2 42.6 MM HG (35-48); ABG PH 7.482 (7.35-7.45); ABG TCO2 28.5 MMOL/L (23-27); Allen Test Positive; Pt O2 Delivery Device Ventilator
[2017-08-19 05:30] LABS: Hemoglobin 10.9 GM/DL (14.0-18.0); Immature Granulocytes % 0.4 %; Immature Granulocytes Absolute 0.04 #; Lymphocytes # 0.2 10*3/uL (1.4-4.0); Mean Corpuscular Hemoglobin 34 PG (27-34); Mean Corpuscular Volume 103.1 FL (87-102); Mean Platelet Volume 11.4 FL (9.6-12.0); Monocytes # 0.3 10*3/uL (0.11-0.8); Monocytes % 3.1 % (1.7-12.7); Neutrophils # 8.4 10*3/uL (1.4-7.4); Neutrophils % 94.5 % (38.7-73.9); Platelet Count 193 T/CUMM (130-400); Red Cell Distribution Width 14.6 % (9.3-17.3); White Blood Count 8.9 T/CUMM (4-12)
[2017-08-19 05:54] LABS: Band Neutrophils 1 % (0-10); Giant Platelets Few; Hypochromasia 1+; Lymphocytes 1 % (20-55); Platelet Estimate Adequate; Segmented Neutrophils 96 % (50-85); Total Cells Counted 100
[2017-08-19 05:55] LABS: Calcium 7.8 MG/DL (8.5-10.1); Macrocytosis Slight; Magnesium 2.1 MG/DL (1.8-2.4); Osmolality,Calculated 285.3 MOS/KG (273-304); Potassium 4.5 MMOL/L (3.5-5.1)
[2017-08-19] MEDS: BUDESONIDE 0.25 MG/2 ML NEB RESP TX SCH ×2 (07:59→19:23)
[2017-08-19] MEDS: DOCUSATE SODIUM 100 MG/10 ML UDCUP PO SCH ×2 (08:27→20:59)
[2017-08-19] MEDS: MEGESTROL 400 MG/10 ML UDCUP PO SCH ×2 (08:27→20:58)
[2017-08-19] MEDS: PANTOPRAZOLE 40 MG VIAL IV SCH (08:27)
[2017-08-19] MEDS: THIAMINE 100 MG TABLET PO SCH ×2 (08:28→20:58)
[2017-08-19] MEDS: DIGOXIN 0.5 MG/2 ML AMP IV SCH (08:28)
[2017-08-19] MEDS: POTASSIUM PHOS/SOD PHOS POWDER 250 MG PACK PO SCH ×3 (08:28→20:59)
[2017-08-19] MEDS: POTASSIUM CHLORIDE 20 MEQ PACK NG SCH ×2 (08:28→20:59)
[2017-08-19] MEDS: DEXTROSE 5% NACL 0.9% 1,000 ML IV SCH ×2 (08:43→18:20)
[2017-08-19] MEDS: ENOXAPARIN 80 MG/0.8 ML SYRINGE SUBCUT SCH ×2 (10:11→20:59)
[2017-08-20] MEDS: ALBUTEROL/IPRATROPIUM 3 ML NEB RESP TX SCH ×6 (00:41→20:53)
[2017-08-20] MEDS: INSULIN REGULAR 100 UNIT/ML SUBCUT SCH ×4 (01:19→19:01)
[2017-08-20] MEDS: PIPERACILLIN/TAZOBACTAM 3,375 MG in SODIUM CHLORIDE 0.9% 100 ML IV SCH ×3 (01:19→19:03)
[2017-08-20] MEDS: methylPREDNISolone SOD SUC 40 MG/1 ML VIAL IV SCH ×3 (01:19→15:48)
[2017-08-20 04:03] LABS: Pt O2 Delivery Device Ventilator
[2017-08-20 04:04] LABS: ABG Base Excess 6.9 MMOL/L (-2.5-2.5); ABG HCO3 30.7 MMOL/L (20-26); ABG Oxygen Saturation 97.9 % (95-100); ABG PCO2 40.7 MM HG (35-48); ABG PH 7.495 (7.35-7.45); ABG PO2 107.3 MM HG (80-95); ABG TCO2 31.9 MMOL/L (23-27)
[2017-08-20] MEDS: PROPOFOL 1,000 MG/100 ML BOTTLE IV SCH (04:32)
[2017-08-20] MEDS: METOCLOPRAMIDE 10 MG/10 ML UDCUP PO SCH ×4 (05:03→21:02)
[2017-08-20 05:08] LABS: Basophils % 0.1 % (0.0-0.8); Eosinophils % 0.1 % (0.00-10.9); Hematocrit 32.4 VOL% (42.0-52.0); Hemoglobin 10.8 GM/DL (14.0-18.0); Immature Granulocytes % 1.1 %; Immature Granulocytes Absolute 0.08 #; Lymphocytes # 0.6 10*3/uL (1.4-4.0); Lymphocytes % 7.5 % (21.2-54.2); Mean Corpuscular HGB Conc 33.3 GM/DL (32-36); Mean Corpuscular Hemoglobin 34 PG (27-34); Mean Corpuscular Volume 101.9 FL (87-102); Mean Platelet Volume 11.6 FL (9.6-12.0); Monocytes # 0.6 10*3/uL (0.11-0.8); Monocytes % 7.4 % (1.7-12.7); Neutrophils # 6.4 10*3/uL (1.4-7.4); Neutrophils % 83.8 % (38.7-73.9); Platelet Count 199 T/CUMM (130-400); Red Blood Count 3.18 MC/CUMM (3.8-5.5); Red Cell Distribution Width 14.5 % (9.3-17.3); White Blood Count 7.6 T/CUMM (4-12)
[2017-08-20] MEDS: NOREPINEPHRINE 8 MG in SODIUM CHLORIDE 0.9% 242 ML IV SCH (05:32)
[2017-08-20 05:40] LABS: Calcium 7.8 MG/DL (8.5-10.1); Osmolality,Calculated 283.3 MOS/KG (273-304)
[2017-08-20] MEDS: BUDESONIDE 0.25 MG/2 ML NEB RESP TX SCH ×2 (07:17→20:53)
[2017-08-20] MEDS: MEGESTROL 400 MG/10 ML UDCUP PO SCH ×2 (09:48→21:02)
[2017-08-20] MEDS: DOCUSATE SODIUM 100 MG/10 ML UDCUP PO SCH ×2 (09:48→21:02)
[2017-08-20] MEDS: POTASSIUM CHLORIDE 20 MEQ PACK NG SCH ×2 (09:50→21:02)
[2017-08-20] MEDS: THIAMINE 100 MG TABLET PO SCH ×2 (09:50→21:02)
[2017-08-20] MEDS: PANTOPRAZOLE 40 MG VIAL IV SCH (09:57)
[2017-08-20] MEDS: ENOXAPARIN 80 MG/0.8 ML SYRINGE SUBCUT SCH ×2 (10:00→21:03)
[2017-08-20] MEDS: DIGOXIN 0.5 MG/2 ML AMP IV SCH (10:09)
[2017-08-20 10:25] LABS: ABG Base Excess 5.9 MMOL/L (-2.5-2.5); ABG HCO3 29.8 MMOL/L (20-26); ABG Oxygen Saturation 98.2 % (95-100); ABG PCO2 40.2 MM HG (35-48); ABG PH 7.479 (7.35-7.45); ABG PO2 99.9 MM HG (80-95); ABG TCO2 26.6 MMOL/L (23-27); Pt O2 Delivery Device Ventilator
[2017-08-20] MEDS: POTASSIUM PHOS/SOD PHOS POWDER 250 MG PACK PO SCH ×3 (11:08→21:02)
[2017-08-20] MEDS: DEXTROSE 5% NACL 0.9% 1,000 ML IV SCH (19:02)
[2017-08-21] MEDS: INSULIN REGULAR 100 UNIT/ML SUBCUT SCH ×4 (00:51→18:15)
[2017-08-21] MEDS: methylPREDNISolone SOD SUC 40 MG/1 ML VIAL IV SCH ×3 (00:51→15:35)
[2017-08-21] MEDS: ALBUTEROL/IPRATROPIUM 3 ML NEB RESP TX SCH ×7 (00:58→23:31)
[2017-08-21] MEDS: METOCLOPRAMIDE 10 MG/10 ML UDCUP PO SCH (03:49)
[2017-08-21] MEDS: PIPERACILLIN/TAZOBACTAM 3,375 MG in SODIUM CHLORIDE 0.9% 100 ML IV SCH ×3 (03:49→18:19)
[2017-08-21] MEDS: DEXTROSE 5% NACL 0.9% 1,000 ML IV SCH ×2 (06:43→18:20)
[2017-08-21] MEDS: PROPOFOL 1,000 MG/100 ML BOTTLE IV SCH (06:44)
[2017-08-21] MEDS: NOREPINEPHRINE 8 MG in SODIUM CHLORIDE 0.9% 242 ML IV SCH (06:45)
[2017-08-21] MEDS: BUDESONIDE 0.25 MG/2 ML NEB RESP TX SCH ×2 (07:41→20:52)
[2017-08-21] MEDS: PANTOPRAZOLE 40 MG VIAL IV SCH (08:11)
[2017-08-21] MEDS: DIGOXIN 0.5 MG/2 ML AMP IV SCH (08:13)
[2017-08-21] MEDS: chlordiazePOXIDE 25 MG CAPSULE PO PRN ×2 (08:15→15:27)
[2017-08-21] MEDS: MEGESTROL 400 MG/10 ML UDCUP PO SCH ×2 (08:15→21:24)
[2017-08-21] MEDS: THIAMINE 100 MG TABLET PO SCH ×2 (08:15→21:24)
[2017-08-21] MEDS: POTASSIUM PHOS/SOD PHOS POWDER 250 MG PACK PO SCH ×3 (08:16→21:24)
[2017-08-21] MEDS: POTASSIUM CHLORIDE 20 MEQ PACK NG SCH ×2 (08:16→21:24)
[2017-08-21] MEDS: METOCLOPRAMIDE 5 MG TABLET PO SCH ×3 (09:02→21:24)
[2017-08-21] MEDS: DOCUSATE SODIUM 100 MG CAPSULE PO SCH ×2 (09:02→21:24)
[2017-08-21] MEDS: ENOXAPARIN 80 MG/0.8 ML SYRINGE SUBCUT SCH ×2 (12:43→21:24)
[2017-08-21] MEDS: LORazepam 2 MG/1 ML VIAL IV PRN (15:54)
[2017-08-22] MEDS: INSULIN REGULAR 100 UNIT/ML SUBCUT SCH ×3 (00:33→15:28)
[2017-08-22] MEDS: methylPREDNISolone SOD SUC 40 MG/1 ML VIAL IV SCH ×3 (00:33→16:43)
[2017-08-22] MEDS: ALBUTEROL/IPRATROPIUM 3 ML NEB RESP TX SCH ×6 (02:51→23:55)
[2017-08-22] MEDS: PIPERACILLIN/TAZOBACTAM 3,375 MG in SODIUM CHLORIDE 0.9% 100 ML IV SCH ×3 (03:08→18:40)
[2017-08-22] MEDS: METOCLOPRAMIDE 5 MG TABLET PO SCH ×4 (03:38→20:28)
[2017-08-22 03:50] LABS: ABG Base Excess 1.6 MMOL/L (-2.5-2.5); ABG HCO3 25.9 MMOL/L (20-26); ABG Oxygen Saturation 98.8 % (95-100); ABG PH 7.364 (7.35-7.45); ABG TCO2 24.3 MMOL/L (23-27)
[2017-08-22 05:40] LABS: Hematocrit 37.6 VOL% (42.0-52.0); Hemoglobin 12.4 GM/DL (14.0-18.0); Immature Granulocytes % 0.6 %; Immature Granulocytes Absolute 0.06 #; Lymphocytes # 0.2 10*3/uL (1.4-4.0); Lymphocytes % 1.8 % (21.2-54.2); Mean Corpuscular Hemoglobin 33 PG (27-34); Mean Corpuscular Volume 100.8 FL (87-102); Mean Platelet Volume 10.5 FL (9.6-12.0); Monocytes # 0.5 10*3/uL (0.11-0.8); Neutrophils % 92.6 % (38.7-73.9); Platelet Count 262 T/CUMM (130-400); Red Blood Count 3.73 MC/CUMM (3.8-5.5); Red Cell Distribution Width 14.2 % (9.3-17.3); White Blood Count 9.8 T/CUMM (4-12)
[2017-08-22 06:11] LABS: Calcium 8.3 MG/DL (8.5-10.1); Magnesium 2.2 MG/DL (1.8-2.4); Potassium 3.6 MMOL/L (3.5-5.1)
[2017-08-22] MEDS: NOREPINEPHRINE 8 MG in SODIUM CHLORIDE 0.9% 242 ML IV SCH (06:16)
[2017-08-22 06:30] LABS: Lymphocytes 4 % (20-55); Segmented Neutrophils 90 % (50-85); Total Cells Counted 100
[2017-08-22 06:31] LABS: Hypochromasia 1+
[2017-08-22 06:32] LABS: Macrocytosis Slight
[2017-08-22] MEDS: BUDESONIDE 0.25 MG/2 ML NEB RESP TX SCH ×2 (07:26→19:47)
[2017-08-22] MEDS: PANTOPRAZOLE 40 MG VIAL IV SCH (09:39)
[2017-08-22] MEDS: LORazepam 2 MG/1 ML VIAL IV PRN ×2 (09:43→20:29)
[2017-08-22] MEDS: DOCUSATE SODIUM 100 MG CAPSULE PO SCH ×2 (09:45→20:29)
[2017-08-22] MEDS: DIGOXIN 0.5 MG/2 ML AMP IV SCH (09:45)
[2017-08-22] MEDS: MEGESTROL 400 MG/10 ML UDCUP PO SCH ×2 (09:46→20:29)
[2017-08-22] MEDS: POTASSIUM PHOS/SOD PHOS POWDER 250 MG PACK PO SCH ×3 (09:46→20:29)
[2017-08-22] MEDS: POTASSIUM CHLORIDE 20 MEQ PACK NG SCH ×2 (09:47→20:29)
[2017-08-22] MEDS: ENOXAPARIN 80 MG/0.8 ML SYRINGE SUBCUT SCH ×2 (09:47→22:04)
[2017-08-22] MEDS: THIAMINE 100 MG TABLET PO SCH ×2 (09:47→20:29)
[2017-08-22] MEDS: DEXTROSE 5% NACL 0.9% 1,000 ML IV SCH (16:40)
[2017-08-23] MEDS: methylPREDNISolone SOD SUC 40 MG/1 ML VIAL IV SCH ×3 (01:35→20:45)
[2017-08-23] MEDS: PIPERACILLIN/TAZOBACTAM 3,375 MG in SODIUM CHLORIDE 0.9% 100 ML IV SCH ×3 (01:36→18:27)
[2017-08-23] MEDS: METOCLOPRAMIDE 5 MG TABLET PO SCH (01:39)
[2017-08-23] MEDS: ALBUTEROL/IPRATROPIUM 3 ML NEB RESP TX SCH ×5 (03:59→19:30)
[2017-08-23 04:10] LABS: Hematocrit 35.7 VOL% (42.0-52.0); Hemoglobin 11.8 GM/DL (14.0-18.0); Immature Granulocytes % 0.7 %; Immature Granulocytes Absolute 0.05 #; Lymphocytes # 0.3 10*3/uL (1.4-4.0); Lymphocytes % 3.8 % (21.2-54.2); Mean Corpuscular HGB Conc 33.1 GM/DL (32-36); Mean Corpuscular Hemoglobin 34 PG (27-34); Mean Corpuscular Volume 102.3 FL (87-102); Mean Platelet Volume 10.4 FL (9.6-12.0); Monocytes # 0.3 10*3/uL (0.11-0.8); Monocytes % 4.6 % (1.7-12.7); Neutrophils # 6.8 10*3/uL (1.4-7.4); Neutrophils % 90.9 % (38.7-73.9); Platelet Count 246 T/CUMM (130-400); Red Blood Count 3.49 MC/CUMM (3.8-5.5); Red Cell Distribution Width 13.8 % (9.3-17.3); White Blood Count 7.4 T/CUMM (4-12)
[2017-08-23] MEDS: NOREPINEPHRINE 8 MG in SODIUM CHLORIDE 0.9% 242 ML IV SCH (04:36)
[2017-08-23 04:47] LABS: Calcium 8.2 MG/DL (8.5-10.1); Osmolality,Calculated 289.3 MOS/KG (273-304); Potassium 3.4 MMOL/L (3.5-5.1)
[2017-08-23 04:57] LABS: Giant Platelets Few; Hypochromasia 1+; Lymphocytes 3 % (20-55); Platelet Estimate Adequate; Segmented Neutrophils 95 % (50-85); Total Cells Counted 100
[2017-08-23] MEDS: BUDESONIDE 0.25 MG/2 ML NEB RESP TX SCH ×2 (07:20→19:30)
[2017-08-23] MEDS: PANTOPRAZOLE 40 MG VIAL IV SCH (08:30)
[2017-08-23] MEDS: DIGOXIN 0.5 MG/2 ML AMP IV SCH (08:44)
[2017-08-23] MEDS: POTASSIUM CHLORIDE 20 MEQ PACK NG SCH ×2 (09:43→20:41)
[2017-08-23] MEDS: ENOXAPARIN 80 MG/0.8 ML SYRINGE SUBCUT SCH ×2 (09:44→21:02)
[2017-08-23] MEDS: MEGESTROL 400 MG/10 ML UDCUP PO SCH ×2 (09:44→20:47)
[2017-08-23] MEDS: QUEtiapine 25 MG TABLET PO SCH ×2 (09:44→20:43)
[2017-08-23] MEDS: THIAMINE 100 MG TABLET PO SCH ×2 (09:44→20:42)
[2017-08-23] MEDS: POTASSIUM PHOS/SOD PHOS POWDER 250 MG PACK PO SCH ×3 (09:44→20:41)
[2017-08-23] MEDS: DOCUSATE SODIUM 100 MG CAPSULE PO SCH ×2 (09:44→20:44)
[2017-08-23] MEDS: LORazepam 2 MG/1 ML VIAL IV PRN ×2 (12:46→18:46)
[2017-08-24] MEDS: ALBUTEROL/IPRATROPIUM 3 ML NEB RESP TX SCH ×5 (00:18→15:01)
[2017-08-24] MEDS: PIPERACILLIN/TAZOBACTAM 3,375 MG in SODIUM CHLORIDE 0.9% 100 ML IV SCH ×2 (01:23→09:40)
[2017-08-24] MEDS: BUDESONIDE 0.25 MG/2 ML NEB RESP TX SCH (07:51)
[2017-08-24] MEDS: methylPREDNISolone SOD SUC 40 MG/1 ML VIAL IV SCH (08:57)
[2017-08-24] MEDS: POTASSIUM CHLORIDE 20 MEQ PACK NG SCH (09:00)
[2017-08-24] MEDS: QUEtiapine 25 MG TABLET PO SCH (09:00)
[2017-08-24] MEDS: DIGOXIN 0.5 MG/2 ML AMP IV SCH (09:03)
[2017-08-24] MEDS: MEGESTROL 400 MG/10 ML UDCUP PO SCH (09:03)
[2017-08-24] MEDS: PANTOPRAZOLE 40 MG VIAL IV SCH (09:04)
[2017-08-24] MEDS: POTASSIUM PHOS/SOD PHOS POWDER 250 MG PACK PO SCH ×2 (09:04→15:03)
[2017-08-24] MEDS: NOREPINEPHRINE 8 MG in SODIUM CHLORIDE 0.9% 242 ML IV SCH (09:05)
[2017-08-24] MEDS: THIAMINE 100 MG TABLET PO SCH (09:09)
[2017-08-24] MEDS: DOCUSATE SODIUM 100 MG CAPSULE PO SCH (09:09)
[2017-08-24] MEDS: ENOXAPARIN 80 MG/0.8 ML SYRINGE SUBCUT SCH (09:39)
[2017-08-24 15:05] VITALS: BP 94/71
== END 2017-08-24 16:29 | DRG 981 ==
LOC: EDBD → EDUNIT# → N.ED 16:49 → N.EDINP 19:32 → N.2E 20:04 → N.CVR 08-10 01:14 → N.ICU 08-11 16:10
PROVIDERS: ADMIT Family Medicine; ATTEND Family Medicine